=== PATIENT | male | born 1980 | race Caucasian/White ===

== ENCOUNTER 2018-10-08 09:45 | Emergency (ER) | payer OTHER ==
[~2018-10-08] VITALS: Ht 180.3 cm; Wt 83.5 kg
== END 2018-10-08 12:42 | disposition home or self-care (01) ==
LOC: ER 09:45
DX: K29.60 Other gastritis without bleeding (principal); N23 Unspecified renal colic

== ENCOUNTER 2020-04-07 18:43 | Emergency (ER) | payer OTHER ==
[~2020-04-07] VITALS: Ht 180.3 cm; Wt 78.5 kg
== END 2020-04-07 22:43 | disposition home or self-care (01) ==
LOC: ER 18:43
DX: N21.0 Calculus in bladder (principal); R10.31 Right lower quadrant pain; Z03.818 Encounter for observation for suspected exposure to other biological agents ruled out

== ENCOUNTER → 2022-07-27 | Emergency (ER) | payer OTHER ==
[~2022-07-27] VITALS: Ht 180.3 cm; Wt 81.6 kg
[~2022-07-27] MED LIST: KETO10TA2 PO; NORFLEX100MG PO
== END | disposition home or self-care (01) ==
LOC: ER 09:06
DX: M54.50 Low back pain, unspecified (principal); Z91.013 Allergy to seafood

== ENCOUNTER 2022-09-22 18:29 | Emergency (ER) | payer OTHER ==
[~2022-09-22] VITALS: Ht 180.3 cm; Wt 82.6 kg
== END 2022-09-22 20:46 | disposition home or self-care (01) ==
LOC: ER 18:29
DX: R51.9 Headache, unspecified (principal); M79.601 Pain in right arm; M41.9 Scoliosis, unspecified; Z91.013 Allergy to seafood